=== PATIENT | female | born 1935 | race Caucasian/White ===

== ENCOUNTER 2024-04-04 09:11 | Outpatient (AMB) | payer MEDICARE, MEDICAID, SELFPAY ==
--- NOTE | 2024-04-04 09:15 | MHC.OFFVIS ---
Vital Signs 04/04/24 09:20 Height 5 ft 3 in Weight 131 lb 6 oz BMI 23.3 BP 122/82 Blood Pressure Location Lt brachial Position Sitting Pulse 71 Pulse Source Pulse Oximeter Pulse Oximetry (%) 96 Oxygen Delivery Method Room Air Intake Visit Reasons: ENP: Movement Disorder Intake Note: Joint pain and also under her heel on both feet. 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 .she is accompanied by her grand daughter who helps with history. she was diagnosed with Parkinsons disease many years ago ( 2011)when she presented with left hand tremors. she is not sure if she is on any medications . but over the years she was tried on different medications. The tremors are mainly in her left hand but sometime has whole body tremors. Memory- worse, confused - no hallucinations sleep- trouble sleeping, pain in her heels and shoots up to her calves L>R -worse at night., moving helps her. she also has back pain. she has frequent arousals at night due to pain. Mood- normal speech- normal Handwriting- ok dressing - needs help SHowering- needs help she has a OPERATOR PREFINISH that helps with her activities of daily living. she uses a walker . No falls she lives alone- 50hrs a week of care. she has tried melatonin, gabapentin ? [facility] Medical History Vitamin B12 deficiency Tremor of both hands Shingles Pancreatic cyst Osteoarthritis HTN (hypertension) GERD (gastroesophageal reflux disease) Constipation Insomnia Restless legs syndrome (RLS) Coarse tremors Physical Exam Vital Signs: Last Vital Signs Pulse 71 04/04/24 09:20 BP 122/82 04/04/24 09:20 Pulse Ox 96 04/04/24 09:20 Oxygen Delivery Method Room Air 04/04/24 09:20 BMI result Body Mass Index 23.3 Const Orientation/consciousness: oriented to person, oriented to place and oriented to time Eyes Pupils: Equal, round and reactive pupils present Neuro Other: Austin UE rest , action, postural tremors L>R No cog wheel rigidity Mild decreased FFM and foot taps Normal facial expression and blink Mild lower jaw tremors Gait - stooped small steps , good arm swings , antalgic Voice - normal General: oriented to person, oriented to place, oriented to time, moves all extremities and no focal motor deficits Cranial nerves: Yes Facial sensation intact/muscles of mastication intact, Yes Equal, round and reactive pupils present, Yes Bilaterally intact EOM present, Yes Nystagmus not present, Yes Normal facial strength present, Yes Midline tongue present and Yes Symmetric palate elevation present Cognition (Neuro): normal cognition Gait exam (Neuro): Antalgic gait present Motor exam (neuro): 5/5 motor strength present throughout and Normal motor muscle tone present throughout Deep tendon reflexes (DTR's): Right triceps reflex intensity grade: 1+, Left triceps reflex intensity grade: 1+, Rt Biceps (C5, C6): 1+, Left biceps reflex intensity grade: 1+, Right brachioradialis reflex intensity grade: 1+, Left brachioradialis reflex intensity grade: 1+, Right patellar reflex intensity grade: 1+ and Left patellar reflex intensity grade: 1+ Coordination: [id number] test normal Assessment & Plan Assessment & Plan (1) Coarse tremors: Code(s): G25.2 - Other specified forms of tremor Category: Medical (2) Restless legs syndrome (RLS): Code(s): G25.81 - Restless legs syndrome Category: Medical (3) Insomnia: Code(s): G47.00 - Insomnia, unspecified Category: Medical Qualifiers: Insomnia type: unspecified Qualified Code(s): G47.00 - Insomnia, unspecified Plan I will trial her on ropinirole ER 4mg qhs Stop ropinirole 0.5mg qhs Labs from PCP for review Mirtazepine 7.5 mg qhs for insomnia Will consider trazadone and sleep study during next visit depending on her repsonse Continue propranalol 20mg bid Medications: New ropinirole ER 4 mg PO BEDTIME 30 tabs 6RF mirtazapine 7.5 mg PO BEDTIME 30 tabs 5RF Coding Level of Care Code New Pt Level 4 (43596) Complex EM visit Add On G2211 Diagnoses Coarse tremors G25.2 Restless legs syndrome (RLS) G25.81 Insomnia, unspecified type G47.00 Insomnia type: unspecified
[2024-04-04 09:20] VITALS: BP 122/82; PULSE 71; O2SAT 96; BMI 23.3
== END 2024-04-04 09:59 | disposition home or self-care (01) ==
PROVIDERS: PCP Internal Medicine; Visit Provider Psychiatry & Neurology Neurology
DX: G25.2 Other specified forms of tremor (principal); G25.81 Restless legs syndrome; G47.00 Insomnia, unspecified
CPT/HCPCS: 99204; G2211

== ENCOUNTER → 2024-04-04 09:11 | Outpatient (BNVA) | payer MEDICARE, MEDICAID, SELFPAY | PROVIDERS: PCP Internal Medicine; Visit Provider Psychiatry & Neurology Neurology | DX: G25.2 Other specified forms of tremor (principal); G25.81 Restless legs syndrome; G47.00 Insomnia, unspecified | CPT/HCPCS: 99202 ==

== ENCOUNTER 2024-06-07 10:46 | Outpatient (AMB) | payer MEDICARE, MEDICAID, SELFPAY ==
--- NOTE | 2024-06-07 10:48 | A.OFFVIS_ITS ---
Vital Signs 06/07/24 10:49 Height 5 ft 3 in BP 130/84 Blood Pressure Location Lt brachial Position Sitting Pulse 85 Pulse Source Pulse Oximeter Pulse Oximetry (%) 92 Oxygen Delivery Method Room Air Intake Visit Reasons: Follow Up 2mo Intake Note: Patient presents for 2 month follow up tremors Passenger Solicitor Required: No Allergies No Known Allergies Allergy (Verified 04/04/24 09:22) HPI Comments Details: 88y/o right handed Ukranian female comes for further management of Parkinsons? Dose changes Ropinorole increased to 4mg made her have nausea and vomit with no difference in pain. pain with achiness and tremors, She was on 0.5mg qhd for a total of 2mg PO Throbbing, jabbing pain raditating up in her legs Tried Ibuprofen Tried Gabapentin Tried Klonipin She has had imaginging for bilateral legs, [facility], Worse in her heel, Cold water and pressing with massage deep tissue helps to alleviate for a little while then it comes back and she is unable to sleep. Accupuncture was not tried She walks all day long around the home. Dose changes Melatonin, sedates her but doesn't help with pain. Denies numbness, in feet Denies electric shock-like pain. lyrica - pregabalin Will trial [place] Will trial Pregabalin Will start PT at home she is accompanied by her grand daughter who helps with history. she was diagnosed with Parkinsons disease many years ago ( 2011)when she presented with left hand tremors. she is not sure if she is on any medications . but over the years she was tried on different medications. The tremors are mainly in her left hand but sometime has whole body tremors. Memory- worse, confused No hallucinations Sleep- trouble sleeping, pain in her heels and shoots up to her calves L>R - worse at night., moving helps her. She also has back pain. She has frequent arousals at night due to pain. Mood- normal Speech- normal Handwriting- ok dressing - needs help Showering- needs help she has a DESIGN ENGINEER [employer]ODUCTS that helps with her activities of daily living. she uses a walker . No falls she lives alone- 50hrs a week of care. she has tried melatonin, gabapentin [phone] Kirstie grand daughter diclofenac ringing and buzzing in her ear [facility] Medical History Vitamin B12 deficiency Tremor of both hands Shingles Pancreatic cyst Osteoarthritis HTN (hypertension) GERD (gastroesophageal reflux disease) Constipation Insomnia Restless legs syndrome (RLS) Coarse tremors Physical Exam Vital Signs: Last Vital Signs Pulse 85 06/07/24 10:49 BP 130/84 06/07/24 10:49 Pulse Ox 92 06/07/24 10:49 Oxygen Delivery Method Room Air 06/07/24 10:49 Assessment & Plan Assessment & Plan (1) Coarse tremors: Code(s): G25.2 - Other specified forms of tremor Category: Medical (2) Restless legs syndrome (RLS): Code(s): G25.81 - Restless legs syndrome Category: Medical (3) Insomnia: Code(s): G47.00 - Insomnia, unspecified Category: Medical Qualifiers: Insomnia type: unspecified Qualified Code(s): G47.00 - Insomnia, unspecified Plan I will trial her on ropinirole ER 4mg qhs Stop ropinirole 0.5mg qhs Labs from PCP for review Mirtazepine 7.5 mg qhs for insomnia Will consider trazadone and sleep study during next visit depending on her repsonse Continue propranalol 20mg bid Medications: New lidocaine 5% as needed apply bilaterally to feet for nerve pain. 1 appl topical BEDTIME PRN 30 grams 3RF pain 90 days MDD PRN G25.81 - Restless legs syndrome bycjdnohpi-luquxmb-zebksox 1.5-10-4 % Prn pain in bilateral feet. 1 ea topical DAILY PRN 1 ea 0RF pain (scale score 7-10) 90 days MDD prn M79.2 - Neuralgia and neuritis, unspecified Discontinued ropinirole ER Discontinued Reason: Patient Refused 4 mg PO BEDTIME 30 tabs 6RF Patient Instructions: HST Sleep Hygiene Coding Diagnoses Coarse tremors G25.2 Restless legs syndrome (RLS) G25.81 Insomnia, unspecified type G47.00 Insomnia type: unspecified
[2024-06-07 10:49] VITALS: BP 130/84; PULSE 85; O2SAT 92
--- NOTE | 2024-06-07 10:55 | A.OFFVIS_ITS ---
Vital Signs 06/07/24 10:49 Height 5 ft 3 in BP 130/84 Blood Pressure Location Lt brachial Position Sitting Pulse 85 Pulse Source Pulse Oximeter Pulse Oximetry (%) 92 Oxygen Delivery Method Room Air Intake Visit Reasons: Follow Up 2mo Allergies No Known Allergies Allergy (Verified 04/04/24 09:22) [facility] Medical History Vitamin B12 deficiency Tremor of both hands Shingles Pancreatic cyst Osteoarthritis HTN (hypertension) GERD (gastroesophageal reflux disease) Constipation Insomnia Restless legs syndrome (RLS) Coarse tremors Physical Exam Vital Signs: Last Vital Signs Pulse 85 06/07/24 10:49 BP 130/84 06/07/24 10:49 Pulse Ox 92 06/07/24 10:49 Oxygen Delivery Method Room Air 06/07/24 10:49 Coding
--- OUTSIDE RECORDS SUMMARY | 2024-06-07 12:29 | XMS_ITS | Clinical Summary ---
Author Organization [facility] Address [address] [place] [address] Care Team Providers Care Custom Frame Assembler Name Role Phone Blanca Regan MD Primary Care Provide r Allergies No known active allergies Medications Medication Sig Dispensed Refills Start Date End Date Status omeprazole (PRILOSEC) 20 MG capsule Take by mouth daily. 0 Active rOPINIRole (REQUIP) 0.25 MG tablet Take 0.25 mg by mouth 3 (three) times a day. 0 Active amLODIPine (NORVASC) tablet 10 mg Take by mouth daily. 0 Active lisinopril (PRINIVIL,ZESTRIL) tablet 10 mg Take 10 mg by mouth daily. 0 Active acetaminophen (TYLENOL) 325 MG tablet Take 650 mg by mouth every 6 (six) hours as needed for pain. 0 Active naproxen (NAPROSYN) 250 MG tablet Take 250 mg by mouth 2 (two) times a day with meals. 0 Active furosemide (LASIX) 20 MG tablet Take 20 mg by mouth 2 (two) times a day. 0 Active Active Problems Problem Noted Date Diagnosed Date History of kidney stones 07/14/2017 Social History Tobacco Use Types Packs/Day Years Used Date Smoking Tobacco: Never Smokeless Tobacco: Never Alcohol Use Standard Drinks/Week Comments No 0 (1 standard drink = 0.6 oz pur e alcohol) Sex and Gender Information Value Date Recorded Sex Assigned at Not on file Gender Identity Not on file Sexual Orientation Not on file Last Filed Vital Signs Vital Sign Reading Time Taken Comments Blood Pressure 150/84 07/14/2017 9:54 AM EDT Pulse - - Temperature - - Respiratory Rate - - Oxygen Saturation - - Inhaled Oxygen Concentration - - Weight 71.2 kg (157 lb) 07/14/2017 9:54 AM EDT Height 165.1 cm (5' 5 ) 07/14/2017 9:54 AM EDT Body Mass Index 26.13 07/14/2017 9:54 AM EDT Plan of Treatment Health Maintenance Due Date Last Done Comments COVID-19 Vaccine (#1) 01/14/1936 Depression Screening 1949 Preventative Health Evaluation 07/16/1955 DTap / Tdap / Td (1 - Tdap) 1956 Shingrix-Zoster Vaccine (1 of 2) 07/16/1987 Fall Risk Assessment 2002 Osteoporosis Screening (DEXA Scan) 2002 Pneumococcal Vaccine (1 of 1 - PCV) 2002 RSV Adult > 60+ Yrs or Pregn ant (1 - 1-dose 75+ series) 2012 Influenza Vaccine (#1) 2023 Hepatitis B Vaccines Aged Out No long er eligible based on patient's age to complete this topic RSV Ped < 20 months Aged Out No longe r eligible based on patient's age to complete this topic Care Teams Custom Frame Assembler Relationship Specialty Start Date End Date Blanca Regan MD PCP - General Internal Medicine 07/09/17
--- NOTE | 2024-06-14 09:52 | A.OFFVIS_ITS ---
Vital Signs 06/07/24 10:49 Height 5 ft 3 in BP 130/84 Blood Pressure Location Lt brachial Position Sitting Pulse 85 Pulse Source Pulse Oximeter Pulse Oximetry (%) 92 Oxygen Delivery Method Room Air Intake Visit Reasons: Follow Up 2mo Allergies No Known Allergies Allergy (Verified 04/04/24 09:22) HPI Comments Details: 88y/o r. handed Ukranian female comes for further management of Parkinsonism symptoms. She is accompanied by her granddaughter who helps with history. She was diagnosed with Parkinsons disease many years ago (2011)when she presented with left hand tremors. She is not sure if she is on any medications, but over the years she was tried on different medications: Melatonin, Gabapentin, Ropinorole, Amytriptyline. She declined to take Mirtazapine and Primidone, due to nausea and s/e of sedation, however she will try the Mirtazapine 7mg at bedtime and Gabapentin 300mg BID until Pregabalin is approved as the pain in heel / lower leg is unbearable per grand-daughter, she was taking it on an as needed bases, however provided patient education today on the importance of taking this medication exactly as it is prescribed daily for optimal efficacy. Diagnosis of chronic degenerative Neuropathic disc disease. The tremors continue and are mainly in her left hand but sometime has entire body tremors with pain, difficulty turning over in bed, and walking. Her memory is okay, she gets confused but no A/V hallucinations. She has difficulty with sleep, can sleep for 1-2 hours at a time due to pain bilaterally in her feet which shoots up to her calves L>R and worse at night and when sitting or lying, her pain subsides with movement but always comes back in minutes.She c/o lower back pain, hip pain and has frequent arousals, she had SI injections earlier this year, and they did not help with the BLE pain. She as a h/o anemia, B12 def, not on B12 inj. has taken B6 and other supplements, labs requested from her primary, if not fasting orders are placed. Her mood is irritable. Speech is normal, no swallowing difficulties. She needs help with all her ADLs, dressing, cooking, bathing. She has hot meals delivered to her daily by her children. She uses a walker and denies falls, as she lives alone, with 50 plus hours of care with a TOP STITCHER. She declines PT today as she knows the exercise she was taught and they help temporarily. 06/09/2022, Thoracic Spine 3 Views REASON: Pain COMPARISON: None. FINDINGS: No bone lesions or fractures. Moderate multifocal degenerative disc endplate spurring and disc space narrowing. There are atherosclerotic vascular calcifications. IMPRESSION: Degenerative disc changes but no evidence of an acute process. WSN: [id number] 06/09/2022, Lumbar Spine 2 or 3 Views Reason: Pain COMPARISON: CT abdomen and pelvis 03/03/2022 FINDINGS: No fracture or subluxation. Bone mineralization appears mildly diminished throughout. Endplate osteophytes at all levels. Mild to moderate decrease in height of all lumbar intervertebral discs, most severe at the L4-5 level. Thoracic dextroscoliosis and lumbar levoscoliosis. SI joints are intact. There is a right hip prosthesis. Soft tissues are unremarkable. IMPRESSION: No acute abnormality. Thoracic dextroscoliosis and lumbar levoscoliosis with associated endplate degenerative changes throughout. L2 moderate loss of disc height at all levels. Right hip prosthesis. 03/03/2022, CERVICAL SPINE: No fracture. No acute osseous abnormalities. Mild anterolisthesis of C3 on C4. Bony fusion of C6 and C7. Moderate multilevel degenerative disc space narrowing and end plate irregularity, most severe at C4- C5 and C6-C7. [facility] Medical History Vitamin B12 deficiency Tremor of both hands Shingles Pancreatic cyst Osteoarthritis HTN (hypertension) GERD (gastroesophageal reflux disease) Constipation Insomnia Restless legs syndrome (RLS) Coarse tremors Physical Exam Vital Signs: Last Vital Signs Pulse 85 06/07/24 10:49 BP 130/84 06/07/24 10:49 Pulse Ox 92 06/07/24 10:49 Oxygen Delivery Method Room Air 06/07/24 10:49 Const Orientation/consciousness: oriented to person, oriented to place and oriented to time Eyes Pupils: Equal, round and reactive pupils present Neuro Other: Austin UE rest , action, postural tremors L>R No cog wheel rigidity Mild decreased FFM and foot taps Normal facial expression and blink Mild lower jaw tremors Gait - stooped small steps , good arm swings , antalgic Voice - normal General: oriented to person, oriented to place, oriented to time, moves all extremities and no focal motor deficits Cranial nerves: Yes Facial sensation intact/muscles of mastication intact, Yes Equal, round and reactive pupils present, Yes Bilaterally intact EOM present, Yes Nystagmus not present, Yes Normal facial strength present, Yes Midline tongue present and Yes Symmetric palate elevation present Cognition (Neuro): normal cognition Gait exam (Neuro): Antalgic gait present Motor exam (neuro): 5/5 motor strength present throughout and Normal motor muscle tone present throughout Deep tendon reflexes (DTR's): Right triceps reflex intensity grade: 1+, Left triceps reflex intensity grade: 1+, Rt Biceps (C5, C6): 1+, Left biceps reflex intensity grade: 1+, Right brachioradialis reflex intensity grade: 1+, Left brachioradialis reflex intensity grade: 1+, Right patellar reflex intensity grade: 1+ and Left patellar reflex intensity grade: 1+ Coordination: [id number]-ut-[id number] test normal Psych Speech and movement: Slowed movement present (Neuro) Results Reviewed Results Reviewed: Requested records from PCP -Labs and Imagining Assessment & Plan Assessment & Plan (1) Coarse tremors: Code(s): G25.2 - Other specified forms of tremor Category: Medical (2) Restless legs syndrome (RLS): Code(s): G25.81 - Restless legs syndrome Category: Medical (3) Insomnia: Code(s): G47.00 - Insomnia, unspecified Category: Medical Qualifiers: Insomnia type: unspecified Qualified Code(s): G47.00 - Insomnia, unspecified (4) Nerve pain: Code(s): M79.2 - Neuralgia and neuritis, unspecified Category: Medical (5) Anemia: Code(s): D64.9 - Anemia, unspecified Category: Medical Qualifiers: Anemia type: iron deficiency Iron deficiency anemia type: unspecified iron deficiency Qualified Code(s): D50.9 - Iron deficiency anemia, unspecified (6) Vitamin B12 deficiency: Code(s): E53.8 - Deficiency of other specified B group vitamins Category: Medical (7) Insomnia disorder, with other sleep disorder, recurrent: Code(s): G47.00 - Insomnia, unspecified; G47.8 - Other sleep disorders Category: Medical Plan Neuropathy/ Coarse tremors with bilateral Restless Leg pain, will trial her on Pregabalin 25mg PO TID Insomnia with mood irritability continue Mirtazapine 7.5mg qhs Continue Propranalol 20mg PO BID Continue taking b12/ and Ferrous sulfate 325mcg po daily, may hold Iron for constipation. Past medications trial: Amytriptyline made RLS symptoms worse, Gabapentin not effective, Ropinorole ER 4mg qhs due to nausea and s/e of sedation with brain fog. Will continue Gabapentin 300mg PO BID, until her PA for Pregabalin 25mg PO TID is approved. Lab from PCP for review - anemic/ B12 deficiency- placed fasting labs. Will consider trazadone and sleep study during next visit depending on her response to Mirtazapine 7mg PO at bedtime and Pregabalin 25mg PO TID Medications: New lidocaine 5% as needed apply bilaterally to feet for nerve pain. 1 appl topical BEDTIME PRN 30 grams 3RF pain 90 days MDD PRN G25.81 - Restless legs syndrome eyigabiwfh-lbhmfhi-oztyhdk 1.5-10-4 % Prn pain in bilateral feet. 1 ea topical DAILY PRN 1 ea 0RF pain (scale score 7-10) 90 days MDD prn M79.2 - Neuralgia and neuritis, unspecified ferrous sulfate take one tablet daily at lunch time with 1/2 glass of orange juice. 325 mg PO DAILY 90 tabs 0RF anemia 3 months MDD 325mg PO D50.9 - Iron deficiency anemia, unspecified magnesium oxide May take one pill at bedtime daily. 400 mg PO DAILY 90 tabs 3RF leg pain 3 months MDD 400mg PO G47.00 - Insomnia, unspecified, G47.8 - Other sleep d isorders Discontinued ropinirole ER Discontinued Reason: Patient Refused 4 mg PO BEDTIME 30 tabs 6RF Patient Instructions: Leg pain at rest, Parasthesias and Neuropathy, Radiculopathy, Started Patient on Pregablin 25mg PO TID awaitng PA approval, can complete the course of Gabapen tin 300mg PO BID until Pregablin is approved, may stop Gabapentin when Pregablin is started. RLS: Heavy Weighted blankets for legs at night, and daily massages, icy hot, matthew-taylor, diclofenac topical gel, lidocaine patches for back pain. B12 def/ Anemia - continue magnesium 400mg daily at night, continue Iron pills 325mg PO at lunch time with a glass of orange juice. Labs are requested from her pcp, and orders placed for fasting labs. Optimize mood and sleep with Mirtazapine 7.5mg at bedtime daily do not skip a dose of any medication and take with meals. Insomnia Will consider sleep study and Trazadone if patient responds to the Mirtazapine and sleep is improved. Sleep hygiene is provided, sleep in a dark room, no devices in bed and temperatures should be 68 degrees or below. Limit fluids 2 hours prior to bedtime, may diffuse essential oils in room or play soft music to relax. Coding Level of Care Code Est Pt Level 4 (66179) Complex EM visit Add On G2211 Diagnoses Coarse tremors G25.2 Restless legs syndrome (RLS) G25.81 Insomnia, unspecified type G47.00 Insomnia type: unspecified Nerve pain M79.2 Iron deficiency anemia, unspecified iron deficiency anemia type D50.9 Anemia type: iron deficiency Iron deficiency anemia type: unspecified iron deficiency Vitamin B12 deficiency E53.8 Insomnia disorder, with other sleep disorder, recurrent G47.00; G47.8 Time Spent (min) 45 Comment worsening leg parasthesias degenerative chronic neuropathy
== END 2024-06-07 11:57 | disposition home or self-care (01) ==
LOC: HO.HSMS 10:49
PROVIDERS: PCP Internal Medicine; Visit Provider Physician Assistant Medical
DX: G25.2 Other specified forms of tremor (principal); G25.81 Restless legs syndrome; G47.00 Insomnia, unspecified; M79.2 Neuralgia and neuritis, unspecified; D50.9 Iron deficiency anemia, unspecified; E53.8 Deficiency of other specified B group vitamins; G47.8 Other sleep disorders
CPT/HCPCS: 99214; G2211

== ENCOUNTER → 2024-06-07 10:46 | Outpatient (BNVA) | payer MEDICARE, MEDICAID, SELFPAY | PROVIDERS: PCP Internal Medicine; Visit Provider Physician Assistant Medical | DX: G25.2 Other specified forms of tremor (principal); G25.81 Restless legs syndrome; G47.00 Insomnia, unspecified; G47.8 Other sleep disorders; M79.2 Neuralgia and neuritis, unspecified; D50.9 Iron deficiency anemia, unspecified; E53.8 Deficiency of other specified B group vitamins | CPT/HCPCS: 99212 ==

== ENCOUNTER 2024-09-14 11:09 | Outpatient (AMB) | payer MEDICARE, MEDICAID, SELFPAY ==
[2024-09-14 11:15] VITALS: PULSE 69; O2SAT 94; BMI 22.8
--- NOTE | 2024-09-14 11:15 | MHC.OFFVIS ---
Vital Signs 09/14/24 11:15 Height 5 ft 3 in Weight 128 lb 8 oz BMI 22.8 Pulse 69 Pulse Source Pulse Oximeter Pulse Oximetry (%) 94 Oxygen Delivery Method Room Air Intake Visit Reasons: 3m Follow Up Intake Note: Patient presents follow up Tremor/RLS medication. Patient granddaughter states patients tremors are the same and looking to to what they can do. Refractory Products Supervisor Required: Yes Refractory Products Supervisor Services: Refractory Products Supervisor Offered & Declined Refractory Products Supervisor Name: Granddaughter Information Interpreted: non-clinical & clinical Accompanied by: Grand Child Allergies No Known Allergies Allergy (Verified 09/14/24 11:19) HPI Comments Details: 89 y/o r. handed Uk[place] female comes for further management of Parkinsonian symptoms. She is accompanied by her grand-daughter who is a nurse and would like something stronger for Dayanara's Chronic Neuropathic degenerative pain. She was diagnosed with Parkinsons in 2011 when she presented with L. hand tremors and entire body can be tremulous. She is not on medical management for Parkinsons. She c/o of insomnia, and naps throughout the day as he continues to have chronic pain 01/05. She as a h/o anemia, B12 deficient, not on B12 inj. has taken B6 and other supplements, labs requested from her primary. Medications she has trialed over the last few years are Melatonin, Gabapentin, Ropinorole, Amitriptyline, Primidone was sedating. She says she will try the Mirtazapine 7mg po at bedtime again. She denies A/V hallucinations. Memory is stable, however has anxiety. She denies dysphagia, drooling, and diet is good, can chew and swallow. Denies constipation and or diarrhea. She has difficulty with sleep, can sleep for 1-2 hours at a time due to pain bilaterally in her feet which shoots up to her calves L>R and worse at night and when sitting or lying, her pain subsides with movement but always comes back in minutes. Has difficulty turning over in bed with lower back pain causing frequent arousals, SI joint injections and followed by pain management. This did not help with the bilateral lower extremity pain. Her mood is irritable. She needs help with all her ADLs, dressing, cooking, bathing and medical management with 50 plus hours of care with a LIVE AMMUNITION INSPECTOR. She has hot meals delivered to her daily by her children. She uses a walker and denies falls, as she lives alone. She declines PT today as she knows the exercise she was taught and they help temporarily. Primary care Dr. Parada [facility] request labs, records for imagining. Labs were last submitted for patient by Opal Bone DIRECTOR OF SPORTS PERFORMANCE- in 05/2024. Imaging reviewed with patient today: 06/09/2022, Thoracic Spine 3 Views REASON: Pain COMPARISON: None. FINDINGS: No bone lesions or fractures. Moderate multifocal degenerative disc endplate spurring and disc space narrowing. There are atherosclerotic vascular calcifications. IMPRESSION: Degenerative disc changes but no evidence of an acute process. WSN: [id number] 06/09/2022, Lumbar Spine 2 or 3 Views Reason: Pain COMPARISON: CT abdomen and pelvis 03/03/2022 FINDINGS: No fracture or subluxation. Bone mineralization appears mildly diminished throughout. Endplate osteophytes at all levels. Mild to moderate decrease in height of all lumbar intervertebral discs, most severe at the L4-5 level. Thoracic dextroscoliosis and lumbar levoscoliosis. SI joints are intact. There is a right hip prosthesis. Soft tissues are unremarkable. IMPRESSION: No acute abnormality. Thoracic dextroscoliosis and lumbar levoscoliosis with associated endplate degenerative changes throughout. L2 moderate loss of disc height at all levels. Right hip prosthesis. 03/03/2022, CERVICAL SPINE: No fracture. No acute osseous abnormalities. Mild anterolisthesis of C3 on C4. Bony fusion of C6 and C7. Moderate multilevel degenerative disc space narrowing and end plate irregularity, most severe at C4-C5 and C6-C7. [facility] Medical History Vitamin B12 deficiency Tremor of both hands Shingles Pancreatic cyst Osteoarthritis HTN (hypertension) GERD (gastroesophageal reflux disease) Constipation Insomnia Restless legs syndrome (RLS) Coarse tremors Physical Exam Vital Signs: Last Vital Signs Pulse 69 09/14/24 11:15 Pulse Ox 94 09/14/24 11:15 Oxygen Delivery Method Room Air 09/14/24 11:15 BMI result Body Mass Index 22.8 Const Orientation/consciousness: oriented to person, oriented to place and oriented to time Eyes Pupils: Equal, round and reactive pupils present Neuro Other: [place] UE rest , action, postural tremors L>R cog wheel rigidity L extremity >R UE Mild decreased FFM and foot taps Normal facial expression and blink Mild lower jaw tremors Gait - stooped small steps , good arm swings , antalgic Voice - normal General: oriented to person, oriented to place, oriented to time, moves all extremities and no focal motor deficits Cranial nerves: Yes Facial sensation intact/muscles of mastication intact, Yes Equal, round and reactive pupils present, Yes Bilaterally intact EOM present, Yes Nystagmus not present, Yes Normal facial strength present, Yes Midline tongue present and Yes Symmetric palate elevation present Cognition (Neuro): normal cognition Gait exam (Neuro): Antalgic gait present Motor exam (neuro): 5/5 motor strength present throughout and Normal motor muscle tone present throughout Psych Speech and movement: Slowed movement present (Neuro) Assessment & Plan Assessment & Plan (1) Coarse tremors: Comment: Encouraged her to start sinemet cd/ld 25/100mg po tid Code(s): G25.2 - Other specified forms of tremor Category: Medical (2) Restless legs syndrome (RLS): Comment: patient is taking pregablin 25mg PO TID wants something stronger sent to pain management. Code(s): G25.81 - Restless legs syndrome Category: Medical (3) Insomnia: Comment: Mirtazapine 7.5mg Code(s): G47.00 - Insomnia, unspecified Category: Medical Qualifiers: Insomnia type: unspecified Qualified Code(s): G47.00 - Insomnia, unspecified (4) Nerve pain: Comment: gabapentin augmentation Code(s): M79.2 - Neuralgia and neuritis, unspecified Category: Medical (5) Anemia: Comment: requested labs and labs submitted are pending Code(s): D64.9 - Anemia, unspecified Category: Medical Qualifiers: Anemia type: iron deficiency Iron deficiency anemia type: unspecified iron deficiency Qualified Code(s): D50.9 - Iron deficiency anemia, unspecified (6) Vitamin B12 deficiency: Comment: labs pending Code(s): E53.8 - Deficiency of other specified B group vitamins Category: Medical (7) Bilateral foot pain: Comment: xray bone spurs? calcaneous?, pt. education memory foam inserts and orthotics Code(s): M79.671 - Pain in right foot; M79.672 - Pain in left foot Category: Medical Plan coarse tremors Parkinsons, not being managed, encouraged patient to treat the parkinsons symptoms wtih CD/LD 25/100mg PO TID. Xray bilateral foot pain, spurs, burning pain, 10/10 Restless Leg pain, will trial her on Pregabalin 25mg PO TID HST for Insomnia with mood irritability, and continue Mirtazapine 7.5mg qhs, will titrate to 15mg po if tolerating well. Anxiety Continue propranolol 20mg PO BID B12 Deficiency continue taking B12/ and Ferrous sulfate 325mcg po daily, may decrease iron to 3x / week if constipated. Start B6 200 mg po daily at bedtime, Start magnesium 400mg PO daily at bedtime. Future considerations for CBD for nerve pain and pain management f/u with hyaluronic injections. Past medications trial: Amitriptyline made RLS symptoms worse, Gabapentin not effective, Ropinorole ER 4mg qhs due to nausea and s/e of sedation with brain fog. Requested Labs and imaging. Lab from PCP for review - anemic/ B12 deficiency- placed fasting labs again September 14, 2024. Will consider trazadone and HST next depending on her response to Mirtazapine 7mg PO at bedtime and Pregabalin 25mg PO TID Orders: Orders XR calcaneus LT min 2V Today M79.671 - Pain in right foot, M79.672 - Pain in left foot XR calcaneus RT min 2V Today M79.671 - Pain in right foot, M79.672 - Pain in left foot RT home sleep study Today G47.19 - Other hypersomnia Patient Instructions: Sleep Hygiene provided: set a scheduled bedtime and wake time to help regulate the circadian rhythm and balance the release of pituitary hormones. Sleep in a dark room, temperatures below 68 degrees, and no devices n bed. Limit caffeinated products 6 hours prior to bed, and limit fluids 2-4 hours prior to bed. Gentle night yoga, diffusing essential oils, and playing soft music can be relaxing. Coding Level of Care Code Est Pt Level 4 (95467) Complex EM visit Add On G2211 Diagnoses Coarse tremors G25.2 Restless legs syndrome (RLS) G25.81 Insomnia, unspecified type G47.00 Insomnia type: unspecified Nerve pain M79.2 Iron deficiency anemia, unspecified iron deficiency anemia type D50.9 Anemia type: iron deficiency Iron deficiency anemia type: unspecified iron deficiency Vitamin B12 deficiency E53.8 Bilateral foot pain M79.671; M79.672 Time Spent (min) 45 Comment complex patient
--- OUTSIDE RECORDS SUMMARY | 2024-09-14 12:41 | XMS_ITS | Clinical Summary ---
Author Organization [facility] Address [address] [place] [address] Care Team Providers Care Air And Water Tester Name Role Phone Blanca Regan MD Primary [...] - 1-dose 75+ series) 2012 Influenza Vaccine (Season Ended) 2024 Hepatitis B Vaccines Aged Out No long er eligible based on patient's age to complete this topic RSV Ped < 20 months Aged Out No longe r eligible based on patient's age to complete this topic Care Teams Air And Water Tester Relationship Specialty Start Date End Date Blanca Regan MD PCP - General Internal Medicine 07/09/17
== END 2024-09-14 12:14 | disposition home or self-care (01) ==
PROVIDERS: PCP Internal Medicine; Visit Provider Physician Assistant Medical
DX: G25.2 Other specified forms of tremor (principal); G25.81 Restless legs syndrome; G47.00 Insomnia, unspecified; M79.2 Neuralgia and neuritis, unspecified; D50.9 Iron deficiency anemia, unspecified; E53.8 Deficiency of other specified B group vitamins; M79.671 Pain in right foot; M79.672 Pain in left foot
CPT/HCPCS: 99214; G2211

== ENCOUNTER → 2024-09-14 11:09 | Outpatient (BNVA) | payer MEDICARE, MEDICAID, SELFPAY | PROVIDERS: PCP Internal Medicine; Visit Provider Physician Assistant Medical | DX: G25.2 Other specified forms of tremor (principal); G25.81 Restless legs syndrome; G47.00 Insomnia, unspecified; M79.2 Neuralgia and neuritis, unspecified; M79.641 Pain in right hand; M79.672 Pain in left foot; E53.8 Deficiency of other specified B group vitamins; D50.9 Iron deficiency anemia, unspecified | CPT/HCPCS: 99212 ==

== ENCOUNTER 2025-03-07 09:48 | Outpatient (AMB) | payer MEDICARE, MEDICAID, SELFPAY ==
--- NOTE | 2025-03-07 09:51 | MHC.OFFVIS ---
Vital Signs 03/07/25 09:52 Height 5 ft 3 in Weight 136 lb 6 oz BMI 24.2 BP 110/78 Blood Pressure Location Rt brachial Position Sitting Pulse 76 Pulse Source Pulse Oximeter Pulse Oximetry (%) 95 Oxygen Delivery Method Room Air Intake Visit Reasons: 6m w MD Intake Note: Follow up Coarse tremors, RLS, Insomnia, Nerve pain, bilateral foot pain and Vit. B12 deficiency Nursing Secretary Required: Yes Nursing Secretary Name: Grand daughter to interpret Accompanied by: Grand Child Allergies No Known Allergies Allergy (Verified 03/07/25 09:52) HPI Comments Details: 89 y/o r. handed Uk[place] female comes for follow up of Parkinsonian symptoms and foot pain ? RLS she reports poor control of foot pain . she is not sure mirtazapine is helping History form last visit- She was diagnosed with Parkinsons in 2011 when she presented with L. hand tremors and entire body can be tremulous. . She c/o of insomnia, and naps throughout the day as he continues to have chronic pain 01/05. She as a h/o anemia, B12 deficient, not on B12 inj. has taken B6 and other supplements, labs requested from her primary. Medications she has trialed over the last few years are Melatonin, Gabapentin, Ropinorole, Amitriptyline, Primidone was sedating.. She denies A/V hallucinations. Memory is stable, however has anxiety. She denies dysphagia, drooling, and diet is good, can chew and swallow. Denies constipation and or diarrhea. She has difficulty with sleep, can sleep for 1-2 hours at a time due to pain bilaterally in her feet which shoots up to her calves L>R and worse at night and when sitting or lying, her pain subsides with movement but always comes back in minutes. Has difficulty turning over in bed with lower back pain causing frequent arousals, SI joint injections and followed by pain management. This did not help with the bilateral lower extremity pain. Her mood is irritable. She needs help with all her ADLs, dressing, cooking, bathing and medical management with 50 plus hours of care with a COSMETIC SALES CONSULTANT. She has hot meals delivered to her daily by her children. She uses a walker and denies falls, as she lives alone. She declines PT today as she knows the exercise she was taught and they help temporarily. . [facility] Medical History Vitamin B12 deficiency Tremor of both hands Shingles Pancreatic cyst Osteoarthritis HTN (hypertension) GERD (gastroesophageal reflux disease) Constipation Insomnia Restless legs syndrome (RLS) Coarse tremors Physical Exam Vital Signs: Last Vital Signs Pulse 76 03/07/25 09:52 BP 110/78 03/07/25 09:52 Pulse Ox 95 03/07/25 09:52 Oxygen Delivery Method Room Air 03/07/25 09:52 BMI result Body Mass Index 24.2 Const Orientation/consciousness: oriented to person, oriented to place and oriented to time Eyes Pupils: Equal, round and reactive pupils present Neuro Other: No tremors today cog wheel rigidity L extremity >R UE Mild decreased FFM and foot taps Normal facial expression and blink Gait - stooped small steps , good arm swings , antalgic Voice - normal General: oriented to person, oriented to place, oriented to time, moves all extremities and no focal motor deficits Cranial nerves: Yes Facial sensation intact/muscles of mastication intact, Yes Equal, round and reactive pupils present, Yes Bilaterally intact EOM present, Yes Nystagmus not present, Yes Normal facial strength present, Yes Midline tongue present and Yes Symmetric palate elevation present Cognition (Neuro): normal cognition Gait exam (Neuro): Antalgic gait present Motor exam (neuro): 5/5 motor strength present throughout and Normal motor muscle tone present throughout Psych Speech and movement: Slowed movement present (Neuro) Assessment & Plan Assessment & Plan (1) Coarse tremors: Comment: parkinsonism Code(s): G25.2 - Other specified forms of tremor Category: Medical (2) Restless legs syndrome (RLS): Comment: patient is taking pregablin 25mg PO TID Code(s): G25.81 - Restless legs syndrome Category: Medical (3) Insomnia: Code(s): G47.00 - Insomnia, unspecified Category: Medical Qualifiers: Insomnia type: unspecified Qualified Code(s): G47.00 - Insomnia, unspecified (4) Bilateral foot pain: Comment: xray bone spurs? calcaneous?, pt. education memory foam inserts and orthotics Code(s): M79.671 - Pain in right foot; M79.672 - Pain in left foot Category: Medical Plan Continue CD/LD 25/100mg PO TID. Xray bilateral foot pain, spurs, burning pain, 10/10 Restless Leg pain, Increase Pregabalin 25mg PO qam- qnoon and 2 tabs qhs . HST for Insomnia with mood irritability D/C Mirtazapine 7.5mg qhs, Anxiety Continue propranolol 20mg PO BID B12 Deficiency continue taking B12/magnesium 400mg PO daily at bedtime. Past medications trial: Amitriptyline made RLS symptoms worse, Gabapentin not effective, Ropinorole ER 4mg qhs due to nausea and s/e of sedation with brain fog. Orders: Referrals Pain Management Referral M79.671 - Pain in right foot, M79.672 - Pain in left foot Medications: Changed From pregabalin 25 mg PO TID 30 days 90 caps 1RF To pregabalin 1tab qam 1 tab qnoon 2tabs qhs orally 3 times a day; 120 caps 1RF 30 days Discontinued mirtazapine Discontinued Reason: Entered in error 7.5 mg PO BEDTIME 30 tabs 5RF Coding Level of Care Code Est Pt Level 4 (22008) Diagnoses Coarse tremors G25.2 Restless legs syndrome (RLS) G25.81 Insomnia, unspecified type G47.00 Insomnia type: unspecified Bilateral foot pain M79.671; M79.672
[2025-03-07 09:52] VITALS: BP 110/78; PULSE 76; O2SAT 95; BMI 24.2
== END 2025-03-07 10:14 | disposition home or self-care (01) ==
LOC: HO.HSMS 09:49
PROVIDERS: Visit Provider Psychiatry & Neurology Neurology
DX: G25.2 Other specified forms of tremor (principal); G25.81 Restless legs syndrome; G47.00 Insomnia, unspecified; M79.671 Pain in right foot; M79.672 Pain in left foot
CPT/HCPCS: 99214

== ENCOUNTER → 2025-03-07 09:48 | Outpatient (BNVA) | payer MEDICARE, MEDICAID, SELFPAY | PROVIDERS: Visit Provider Psychiatry & Neurology Neurology | DX: G25.2 Other specified forms of tremor (principal); G47.00 Insomnia, unspecified; M79.671 Pain in right foot; M79.672 Pain in left foot | CPT/HCPCS: 99212 ==